=== PATIENT | female | born 1990 | race American Indian/Alaskan Native ===

== ENCOUNTER 2018-08-18 17:16 | Emergency (ER) | payer BC ==
[2018-08-18] MEDS ORDERED: Sodium Chloride 0.9% 1,000 ML IV STA (18:34)
[2018-08-18 19:10] LABS: BASO # 0.1 K/uL (0.0-0.2); BASO % 0.9 % (0.0-2.0); EOS # 0.1 K/uL (0.0-0.7); EOS % 1.4 % (0.0-4.0); HEMOGLOBIN 12.5 g/dL (12.0-16.0); LYMPH # 2.4 K/uL (1.0-4.3); LYMPH % 44.3 % (20.0-40.0); MEAN CELL VOLUME 83.5 fl (81.0-99.0); MEAN CORPUSCULAR HGB CONC 32.3 g/dL (33.0-37.0); MEAN PLATELET VOLUME 7.9 fl (7.2-11.7); MONO # 0.3 K/uL (0.0-0.8); NEUT # 2.6 K/uL (1.8-7.0); NEUT % 48.4 % (50.0-75.0); NRBC % 0.2 % (0.0-0.0); RBC 4.65 Mil/uL (3.80-5.20); RED CELL DISTRIBUTION WIDTH 13.4 % (11.5-14.5); WHITE BLOOD COUNT 5.4 K/uL (4.8-10.8)
[2018-08-18 19:11] LABS: OPIATES, UR NEGATIVE (NEGATIVE); PHENCYCLIDINE, UR NEGATIVE (NEGATIVE)
[2018-08-18 19:22] LABS: VENOUS BLOOD GAS BASE EXCESS 0.5 mmol/L (0.0-2.0); VENOUS BLOOD GAS PCO2 44 mmHg (40-60); VENOUS BLOOD GAS PO2 36 mm/Hg (30-55); VENOUS BLOOD PH 7.38 (7.32-7.43)
[2018-08-18 19:22] LABS: BARBITURATES, UR NEGATIVE (NEGATIVE); BENZODIAZEPINES, UR NEGATIVE (NEGATIVE)
[2018-08-18 19:22] LABS: ALB/GLOB RATIO 1.2 (1.0-2.1); ALBUMIN 3.9 g/dL (3.5-5.0); ALT/SGPT 22 U/L (9-52); AST/SGOT 22 U/L (14-36); BLOOD UREA NITROGEN 15 mg/dl (7-17); CALCIUM 8.8 mg/dL (8.4-10.2); GFR NON-AFRICAN AMERICAN > 60
--- NOTE | 2018-08-18 19:22 | ED PDOC ---
HPI: Psych/Substance Abuse Time Seen by Provider: 08/18/18 17:55 Chief Complaint (Nursing): Psychiatric Evaluation Chief Complaint (Provider): Overdose History Per: Patient, Family (significant other) History/Exam Limitations: no limitations Onset/Duration Of Symptoms: Days (x 1) Current Symptoms Are (Timing): Still Present Suicide/Self Injury Attempted (Context): Ingestion Associated Symptoms: Depression Additional Complaint(s): 27 year old female with a history of anxiety presents to the ED for evaluation after an overdose. History is provided by patient as well as her significant other. She reports that she has been feeling depressed since the end of July and had thoughts of suicide before. Currently, she states that she is tired and just wants to sleep. Around 3pm today, she texted her significant other than she took pills which included 8 dextromethorphan and 3 30 ml cups of cough medicine for diabetics as well as 4 tablets of NyQuil and a half a bottle of wine. Patient recently just had medications changed from Paxil to Pristiq. Last night, she called the suicide hotline saying she tired but not sad and states that she feels out of her body. Denies hallucinations, hearing voices and any pain. PMD: Dr. Yee Past Medical History Reviewed: Historical Data, Nursing Documentation, Vital Signs Vital Signs: Last Vital Signs Temp 98.9 F 08/18/18 17:31 Pulse 79 08/18/18 17:31 Resp 18 08/18/18 17:31 BP 124/85 08/18/18 17:31 Pulse Ox 100 08/18/18 17:31 - Medical History PMH: Anxiety - Surgical History Surgical History: No Surg Hx - Family History Family History: States: Diabetes - Social History Current smoker - smoking cessation education provided: No Drugs: Denies - Allergies Allergies/Adverse Reactions: Allergies Allergy/AdvReac Type Severity Reaction Status Date / Time No Known Allergies Allergy Verified 08/18/18 17:31 Review of Systems ROS Statement: Except As Marked, All Systems Reviewed And Found Negative (and as per HPI) Neurological: Positive for: Dizziness Psych: Positive for: Anxiety, Depression, Other (overdose) Physical Exam - Reviewed Nursing Documentation Reviewed: Yes Vital Signs Reviewed: Yes - Physical Exam Appears: Positive for: No Acute Distress Head Exam: Positive for: ATRAUMATIC, NORMOCEPHALIC Skin: Positive for: Warm, Dry Eye Exam: Positive for: EOMI, PERRL ENT: Negative for: Pharyngeal Erythema, Tonsillar Exudate Neck: Positive for: Painless ROM, Supple Cardiovascular/Chest: Positive for: Regular Rate, Rhythm. Negative for: Murmur Respiratory: Positive for: Normal Breath Sounds. Negative for: Respiratory Distress Gastrointestinal/Abdominal: Positive for: Soft. Negative for: Tenderness Back: Positive for: Normal Inspection. Negative for: Muscle Spasm Extremity: Positive for: Normal ROM. Negative for: Deformity Lymphatic: Negative for: Adenopathy Neurologic/Psych: Positive for: Alert, Oriented (x 3), Other (appears intoxicated). Negative for: Motor/Sensory Deficits - Laboratory Results Result Diagrams: 08/18/18 19:04 08/18/18 19:04 - ECG O2 Sat by Pulse Oximetry: 100 (RA) Pulse Ox Interpretation: Normal Medical Decision Making Medical Decision Makin Impression: suicidal ideation and medication overdose Initial Plan: --VBG --EKG --CBC --Acetaminophen --Alcohol --UDS --mag Phos --Salicylate --Urine dip --Urine preg --NS IV --1:1 observation --Poison control consult [place] Poison control who advised typicaly toxicologic workup and watch for CHICKEN BONER depression or stimulation due to possible anticholinergics from multiple cold medications. 2100 Labs unremarkable Medically stable for psychiatric evaluation and admission if ncessary 2300 Evaluated by Zane parks d/w Haroon Tang NP. Stable for discharge. Dc'd to care of significant other and family. Scribe Attestation: Documented by Karen Sawant acting as a scribe for Patricia Guzman MD Provider Scribe Attestation: All medical record entries made by the Scribe were at my direction and personally dictated by me. I have reviewed the chart and agree that the record accurately reflects my personal performance of the history, physical exam, medical decision making, and the department course for this patient. I have also personally directed, reviewed, and agree with the discharge instructions and disposition. Disposition - Clinical Impression Clinical Impression: Adjustment disorder, Anxiety, Overdose - Disposition Disposition: Routine/Home Disposition Time: 23:00 Condition: STABLE Additional Instructions: FOLLOW UP WITH YOUR DOCTOR SOON POSSIBLE. Instructions: Adjustment Disorder, Anxiety, Adult (DC) Forms: [employer] (Maltese)
[2018-08-18 19:27] LABS: ACETAMINOPHEN < 10.0 ug/ml (10.0-30.0); SALICYLATE < 1.0 mg/dl
[2018-08-18 19:39] LABS: INR 0.9; PROTHROMBIN TIME 10.6 Seconds (9.8-13.1)
[2018-08-18 19:41] LABS: PARTIAL THROMBOPLASTIN TIME 29.4 Seconds (25.6-37.1)
[2018-08-18 20:50] VITALS: RESP 16
[2018-08-18 23:19] VITALS: BP 118/74; PULSE 88; TEMP 98
--- NOTE | 2018-08-19 22:59 | CARD ---
APPROVED REPORT Date of service: 08/18/2018 EKG Measurement Heart [id number] <Conclusion> Normal sinus rhythm Normal ECG
[2018-08-19 23:23] VITALS: O2SAT 100
== END 2018-08-18 23:31 | disposition home or self-care (01) ==
LOC: H.ER 17:16
DX: F19.10 Other psychoactive substance abuse, uncomplicated (principal); F43.22 Adjustment disorder with anxiety; T65.91XA Toxic effect of unspecified substance, accidental (unintentional), initial encounter
CPT/HCPCS: 80053; 81025; 82803; 83735; 84100; 85025; 85610; 85730; 93005; 96360; 99283; G0480; J7030